=== PATIENT | female | born 1980 | race Caucasian/White ===

== ENCOUNTER 2022-10-24 23:08 | Emergency (ER) | payer BC ==
[2022-10-24] MEDS ORDERED: Sodium Chloride 0.9% 1,000 ML IV ONE (23:21)
[2022-10-24] MEDS ORDERED: Diltiazem IR 60 MG Tab PO ONE (23:29)
[2022-10-25 00:18] LABS: BASOPHILS PERCENT AUTO 0.3 % (0.0-1.5); EOSINOPHILS ABSOLUTE AUTO 0.1 K/uL (0.0-0.7); EOSINOPHILS PERCENT AUTO 1.1 % (0.0-7.0); HEMATOCRIT 41.3 % (36.0-46.0); HEMOGLOBIN 13.9 g/dL (12.0-16.0); LYMPHOCYTES ABSOLUTE AUTO 3.4 K/uL (0.6-2.4); LYMPHOCYTES PERCENT AUTO 32.5 % (16.0-40.0); MEAN CORPUSCULAR HEMOGLOBIN 29.1 pg (27.0-32.0); MEAN CORPUSCULAR HGB CONC 33.7 g/dL (31.0-37.0); MEAN CORPUSCULAR VOLUME 86.4 fL (80.0-98.0); MONOCYTES ABSOLUTE AUTO 0.8 K/uL (0.0-0.8); MONOCYTES PERCENT AUTO 7.2 % (0.0-15.0); NEUTROPHILS ABSOLUTE AUTO 6.1 K/uL (1.4-5.7); NEUTROPHILS PERCENT AUTO 58.9 % (48.0-80.0); PLATELET COUNT,PLT 281 K/uL (150-400); RED BLOOD CELL COUNT 4.78 M/uL (4.30-5.90); WHITE BLOOD CELL COUNT,WBC 10.35 K/uL (4.0-11.0)
[2022-10-25 00:30] LABS: INR 0.93 (0.86-1.11); PTT,PARTIAL THROMBOPLSTIN TIME 26.2 SEC (23.9-30.7)
[2022-10-25 00:47] LABS: BILIRUBIN TOTAL 0.3 mg/dL (0.2-1.0); CALCIUM 9.1 mg/dL (8.5-10.1); CHLORIDE,CL 101 mmol/L (98-107); GLUCOSE RANDOM 179 mg/dL (74-106); MAGNESIUM 1.7 mg/dL (1.8-2.4); POTASSIUM,K 3.4 mmol/L (3.5-5.1); PROTEIN TOTAL,TP 7.3 g/dL (6.4-8.2); SODIUM,NA 141 mmol/L (136-145)
[2022-10-25] MEDS ORDERED: Diltiazem 100 MG in Sodium Chloride 0.9% 100 ML IV SCH (01:00)
[2022-10-25 01:07] LABS: ALANINE AMINOTRANSFERASE,ALT 38 IU/L (14-63); ALBUMIN 3.6 g/dL (3.4-5.0); ALKALINE PHOSPHATASE 107 U/L (46-116); ASPARTATE AMNIOTRANSFERASE,AST 22 IU/L (15-37); BLOOD UREA NITROGEN,BUN 12 mg/dL (7.0-18.0); CREATININE 0.8 mg/dL (0.6-1.0); TSH ULTRASENSITIVE 3.48 uIU/mL (0.36-3.74)
[2022-10-25 01:11] LABS: ESTIMATED GFR 93 mL/min (>60)
[2022-10-25] MEDS ORDERED: Magnesium Oxide 400 MG Tab PO ONE (01:18)
[2022-10-25] MEDS ORDERED: Potassium Chloride 20 MEQ Tab.ER PO ONE (01:18)
== END 2022-10-25 02:01 | disposition home or self-care (01) ==
LOC: MW.ED 23:08
DX: I48.91 Unspecified atrial fibrillation (principal); Z88.8 Allergy status to other drugs, medicaments and biological substances
CPT/HCPCS: 36415; 80053; 83735; 84443; 84484; 85025; 85610; 85730; 93005; 96360; 99285; A9270; J7030; 93010; 99283